=== PATIENT | male | born 1960 ===

== ENCOUNTER → 2019-01-20 | Outpatient (REF) ==
--- NOTE | 2019-01-21 01:50 | REP ---
Clinical: Pain and disability. Technique: AP, lateral, bilateral oblique and sunrise views of the right knee. Findings: Evidence for knee replacement. Tatums view demonstrates postsurgical sclerotic changes and subtle fraying involving the patella suggesting patellar tendinopathy. Remainder examination is relatively normal. Impression: Patellar tendinopathy. Prior knee replacement. Electronically Signed by Vinayak Mayfield MD 01/21/2019 01:42 A
== END ==
LOC: M SMT 12:16
PROVIDERS: ATTEND Internal Medicine
DX: M51.36 Other intervertebral disc degeneration, lumbar region (principal)